=== PATIENT | male | born 1970 | race Caucasian/White ===

== ENCOUNTER 2019-06-05 10:15 | Emergency (ER) | payer MEDICAID ==
[~2019-06-05] VITALS: Ht 180.3 cm; Wt 81.6 kg
[2019-06-05 10:43] LABS: BASOPHILS # (AUTO) 0.1 K/uL (0.0-8.0); BASOPHILS % (AUTO) 1.5 % (0.0-2.0); EOSINOPHILS # (AUTO) 0.2 K/uL (0.0-0.7); EOSINOPHILS % (AUTO) 3.6 % (0.0-7.0); HEMATOCRIT 42.2 % (36.7-47.1); HEMOGLOBIN 14.8 g/dL (12.5-16.3); LYMPHOCYTES # (AUTO) 1.8 K/uL (20.0-40.0); LYMPHOCYTES % (AUTO) 26.6 % (20.5-51.5); MEAN CORPUSCULAR HEMOGLOBIN 30.5 uug (23.8-33.4); MEAN CORPUSCULAR HGB CONC 35 g/dL (32.5-36.3); MEAN CORPUSCULAR VOLUME 86.9 fL (73.0-96.2); MONOCYTES # (AUTO) 0.6 K/uL (2.0-10.0); MONOCYTES % (AUTO) 9.4 % (0.0-11.0); NEUTROPHILS % (AUTO) 58.9 % (38.5-71.5); PLATELET COUNT (AUTO) 206 K/uL (152-348); RED BLOOD CELL COUNT(AUTO) 4.86 MIL/uL (4.06-5.63); WHITE BLOOD COUNT (AUTO) 6.8 K/uL (3.6-10.2)
[2019-06-05] MEDS ORDERED: MAG HYDROX/AL HYDROX/SIMETH 30 ML LIQUID UDC ONE (10:43)
[2019-06-05] MEDS ORDERED: FAMOTIDINE 20 MG TABLET ONE (10:43)
[2019-06-05 10:44] LABS: *BILIRUBIN,URIN NEGATIVE (NEGATIVE); *BLOOD, URINE NEGATIVE (NEGATIVE); *CLARITY,URINE CLEAR (CLEAR); *COLOR,URINE YELLOW (YELLOW); *KETONES,URINE NEGATIVE (NEGATIVE); *UROBILINOGEN,URINE 0.2 E.U./dl (NORMAL); LEUKOCYTE ESTERASE ,URINE NEGATIVE (NEGATIVE); NITRITE, URINE NEGATIVE (NEGATIVE); PH,URINE 5.5 (5.0-8.0); UGLUCOSE NEGATIVE (NEGATIVE)
[2019-06-05] MEDS ORDERED: PANTOPRAZOLE SODIUM 40 MG TABLET.DR PO ONE ×2 (10:44→10:45)
[2019-06-05] MEDS ORDERED: LIDOCAINE VISCUS 2% 15 ML UDC ONE (10:44)
[2019-06-05] MEDS ORDERED: MAG HYDROX/AL HYDROX/SIMETH 30 ML LIQUID UDC PO ONE (10:45)
[2019-06-05] MEDS ORDERED: LIDOCAINE VISCUS 2% 15 ML UDC MM ONE (10:45)
[2019-06-05] MEDS ORDERED: FAMOTIDINE 20 MG TABLET PO ONE (10:45)
[2019-06-05 10:53] LABS: BILIRUBIN,DIRECT 0.1 mg/dL (0.0-0.2); BILIRUBIN,TOTAL 0.5 mg/dL (0.2-1.0); CREATININE 0.9 mg/dL (0.6-1.3); POTASSIUM 3.9 mmol/L (3.5-5.1); TOTAL PROTEIN, SERUM 7.4 g/dL (6.4-8.2)
--- NOTE | 2019-06-05 11:34 | NUR ---
PATIENT IS PAIN FREE AT THIS TIME. Patient discharged to home in stable conditon with brisk steady gait. Written and verbal after care instructions given to patient. Patient verbalizes understanding & compliance of instructions.
== END 2019-06-05 11:36 | disposition home or self-care (01) ==
LOC: ER 10:15
DX: R10.13 Epigastric pain (principal)
CPT/HCPCS: 36415; 70030-TC; 83690; 85025; 93005; A4663

== ENCOUNTER 2020-03-15 06:31 | Emergency (ER) | payer MEDICAID ==
[~2020-03-15] VITALS: Ht 180.3 cm; Wt 80.3 kg
[2020-03-15 07:15] VITALS: BP 120/61
== END 2020-03-15 07:16 | disposition home or self-care (01) ==
LOC: ER 06:32
DX: M54.42 Lumbago with sciatica, left side (principal); Z87.11 Personal history of peptic ulcer disease; G89.29 Other chronic pain
CPT/HCPCS: A4663

== ENCOUNTER 2020-03-22 07:18 | Emergency (ER) | payer MEDICAID ==
[~2020-03-22] VITALS: Ht 180.3 cm; Wt 80.3 kg
[2020-03-22] MEDS ORDERED: ONDANSETRON 4 MG/2 ML VIAL IM ONE (07:30)
[2020-03-22] MEDS ORDERED: HYDROMORPHONE 1 MG/1 ML DISP.SYRIN IM ONE (07:30)
[2020-03-22] MEDS ORDERED: ONDANSETRON 4 MG/2 ML VIAL ONE (07:34)
[2020-03-22] MEDS ORDERED: HYDROMORPHONE 2 MG/1 ML DISP.SYRIN ONE (07:34)
--- NOTE | 2020-03-22 07:40 | NUR ---
Patient discharged to home in stable condition. Written and verbal after care instructions given. Patient verbalizes understanding of instructions. Stressed follow up or return to ER for worsening s/s. Pt states he will call an [facility] home. Pt ambulatory with steady gait.
== END 2020-03-22 07:41 | disposition home or self-care (01) ==
LOC: ER 07:18
DX: M54.42 Lumbago with sciatica, left side (principal); Z87.11 Personal history of peptic ulcer disease
CPT/HCPCS: 96372 ×2; 99284; J1170; J2405; A4663

== ENCOUNTER 2021-02-06 11:45 | Emergency (ER) | payer MEDICAID ==
[~2021-02-06] VITALS: Ht 175.3 cm; Wt 81.6 kg
== END 2021-02-06 12:41 | disposition home or self-care (01) ==
LOC: ER 11:45
DX: U07.1 COVID-19 (principal); R91.8 Other nonspecific abnormal finding of lung field; Z87.11 Personal history of peptic ulcer disease
CPT/HCPCS: 71045; A4663

== ENCOUNTER 2024-10-28 07:04 | Emergency (ER) | payer MEDICAID, OTHER ==
[~2024-10-28] VITALS: Ht 180.3 cm; Wt 90.7 kg
[2024-10-28] MEDS ORDERED: LEVO75TA7 PO (07:31)
[2024-10-28] MEDS: IV NORMAL SALINE 1000 ML BAG IV ONE (07:46)
[2024-10-28 07:58] LABS: BASOPHILS # (AUTO) 0.1 K/UL (0.0-0.2); BASOPHILS % (AUTO) 1.1 % (0.0-2.0); EOSINOPHILS # (AUTO) 0.2 K/uL (0.0-0.7); EOSINOPHILS % (AUTO) 2.7 % (0.0-7.0); HEMATOCRIT 39.7 % (36.7-47.1); LYMPHOCYTES # (AUTO) 1.3 K/uL (0.8-4.8); LYMPHOCYTES % (AUTO) 17.7 % (20.5-51.5); MEAN CORPUSCULAR HEMOGLOBIN 30.1 uug (23.8-33.4); MEAN CORPUSCULAR HGB CONC 35 g/dL (32.5-36.3); MEAN CORPUSCULAR VOLUME 85.3 fL (73.0-96.2); MONOCYTES # (AUTO) 0.8 K/uL (0.1-1.30); MONOCYTES % (AUTO) 10.8 % (0.0-11.0); NEUTROPHILS # (AUTO) 5.1 K/uL (1.8-8.9); NEUTROPHILS % (AUTO) 67.7 % (38.5-71.5); PLATELET COUNT (AUTO) 234 K/uL (152-348); RED BLOOD CELL COUNT(AUTO) 4.66 MIL/uL (4.06-5.63); RED CELL DISTRIBUTION WIDTH 12.8 % (12.1-16.2); WHITE BLOOD COUNT (AUTO) 7.6 K/uL (3.6-10.2)
[2024-10-28 08:05] LABS: DIFFERENTIAL COMMENT 1
[2024-10-28 08:08] LABS: CALCIUM 9.1 mg/dL (8.5-10.1); CREATININE 1.1 mg/dL (0.6-1.3); POTASSIUM 4.3 mmol/L (3.5-5.1)
[2024-10-28] MEDS ORDERED: FAMOTIDINE. 20 MG/2 ML VIAL IV ONE (08:10)
[2024-10-28] MEDS: FAMOTIDINE. 20 MG/2 ML VIAL IV ONE (08:10)
[2024-10-28 08:14] LABS: ALBUMIN 3.5 g/dL (3.4-5.0); BILIRUBIN,DIRECT 0.1 mg/dL (0.0-0.2); BILIRUBIN,TOTAL 0.4 mg/dL (0.2-1.0); TOTAL PROTEIN, SERUM 7.3 g/dL (6.4-8.2)
[2024-10-28] MEDS ORDERED: SUCR1TAB31 PO (08:58)
[2024-10-28] MEDS ORDERED: FAMO40TA7 PO (08:58)
[2024-10-28] MEDS ORDERED: MAGNESIUM SULFATE/D5W 200 ML ONE (09:01)
[2024-10-28] MEDS: MAGNESIUM SULFATE/D5W 100 ML IV ONE (09:23)
[2024-10-28 10:31] VITALS: BP 121/70; O2SAT 98
== END 2024-10-28 10:35 | disposition home or self-care (01) ==
LOC: ER 07:04
DX: R19.7 Diarrhea, unspecified (principal); Z87.19 Personal history of other diseases of the digestive system; Z87.39 Personal history of other diseases of the musculoskeletal system and connective tissue; Z60.2 Problems related to living alone
CPT/HCPCS: 80076; 80048; 83735; 85025; 36415; 99284; 96361; 96365; 96375; J1308; J3475; J7040; A4606; A4663

== ENCOUNTER 2024-10-30 23:41 | Emergency (ER) | payer OTHER ==
[~2024-10-30] VITALS: Ht 180.3 cm; Wt 90.7 kg
[~2024-10-30 23:41] MED LIST: FAMO40TA7 PO; LEVO75TA7 PO; SUCR1TAB31 PO
[2024-10-31 00:12] LABS: *OCCULT BLOOD STOOL NEGATIVE (NEGATIVE)
[2024-10-31 00:24] LABS: BASOPHILS # (AUTO) 0.1 K/UL (0.0-0.2); DIFFERENTIAL COMMENT 1; EOSINOPHILS # (AUTO) 0.2 K/uL (0.0-0.7); EOSINOPHILS % (AUTO) 3.1 % (0.0-7.0); HEMATOCRIT 41.6 % (36.7-47.1); HEMOGLOBIN 14.4 g/dL (12.5-16.3); LYMPHOCYTES # (AUTO) 1.4 K/uL (0.8-4.8); LYMPHOCYTES % (AUTO) 22.2 % (20.5-51.5); MEAN CORPUSCULAR HEMOGLOBIN 29.7 uug (23.8-33.4); MEAN CORPUSCULAR HGB CONC 35 g/dL (32.5-36.3); MEAN CORPUSCULAR VOLUME 85.8 fL (73.0-96.2); MONOCYTES # (AUTO) 0.7 K/uL (0.1-1.30); MONOCYTES % (AUTO) 11.6 % (0.0-11.0); NEUTROPHILS # (AUTO) 3.9 K/uL (1.8-8.9); NEUTROPHILS % (AUTO) 62.1 % (38.5-71.5); PLATELET COUNT (AUTO) 264 K/uL (152-348); RED BLOOD CELL COUNT(AUTO) 4.84 MIL/uL (4.06-5.63); RED CELL DISTRIBUTION WIDTH 12.7 % (12.1-16.2); WHITE BLOOD COUNT (AUTO) 6.2 K/uL (3.6-10.2)
[2024-10-31 00:29] LABS: POTASSIUM 3.6 mmol/L (3.5-5.1)
[2024-10-31 00:35] LABS: ALBUMIN 3.9 g/dL (3.4-5.0); BILIRUBIN,TOTAL 0.4 mg/dL (0.2-1.0); MAGNESIUM 1.6 mg/dL (1.8-2.4)
[2024-10-31 01:38] VITALS: BP 125/74; O2SAT 100
== END 2024-10-31 01:22 | disposition home or self-care (01) ==
LOC: ER 23:45
DX: R19.7 Diarrhea, unspecified (principal); Z79.890 Hormone replacement therapy; Z60.2 Problems related to living alone; Z87.19 Personal history of other diseases of the digestive system; Z87.39 Personal history of other diseases of the musculoskeletal system and connective tissue
CPT/HCPCS: 36415; 83735; 85025; A4606; A4663